=== PATIENT | female | born 1940 | race Caucasian/White ===

== ENCOUNTER 2021-03-17 15:59 | Outpatient (REF) | payer MEDICARE, OTHER, SELFPAY ==
[2021-03-17 17:14] LABS: Glucose Random 353 mg/dL (60-115)
[2021-03-17 17:21] LABS: Syphilis Screen Nonreactive (Nonreactive)
[2021-03-17 17:32] LABS: Vitamin B12 639 pg/mL (200-900)
[2021-03-18 10:11] LABS: Folate 11.3 ng/mL (> or = 4.0)
[2021-03-18 13:46] LABS: Anti Nuclear Antibody Screen NEGATIVE (NEGATIVE)
[2021-03-18 21:51] LABS: Prot Elec - Alpha1 0.2 g/dL (0.2-0.3); Prot Elec - Alpha2 0.7 g/dL (0.5-0.9); Prot Elec - Beta 1 0.4 g/dL (0.4-0.6); Prot Elec - Beta 2 0.3 g/dL (0.2-0.5); Prot Elec - Gamma 0.6 g/dL (0.8-1.7); Prot Elec - Total Protein 6.2 g/dL (6.1-8.1)
== END 2021-03-17 16:00 | disposition home or self-care (01) ==
LOC: HO.LAB 15:59
PROVIDERS: PCP Nurse Practitioner Family; Visit Provider Psychiatry & Neurology Neurology
DX: R20.0 Anesthesia of skin (principal); G62.9 Polyneuropathy, unspecified; R41.3 Other amnesia
CPT/HCPCS: 36415; 82607; 82746; 82947; 84155; 84165; 86038; 86039; 86780

== ENCOUNTER 2021-03-29 10:02 | Outpatient (REF) | payer MEDICARE, OTHER, SELFPAY ==
--- NOTE | ~2021-03-29 | MR_ITS ---
EXAMINATION: MR BRAIN WITHOUT CONTRAST CLINICAL INFORMATION: Memory loss. Ataxia. History of CVA. Rule out NPH. COMPARISON: None available. TECHNIQUE: Multiplanar, multisequence imaging of the brain was performed without intravenous contrast. FINDINGS: There is no acute infarction, hemorrhage, mass, or extra-axial fluid collection. The sequela of old infarct/hemorrhage is seen within the right basal ganglia with small amount of hemosiderin in addition to gliosis with some associated vacuo dilatation of the right frontal horn. Mild to moderate scattered foci of T2/FLAIR hyperintensity are seen within the cerebral white matter likely on the basis of chronic microangiopathy. 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 The ventricles and sulci appear commensurate. The callosal angle does not appear abnormal. The major arterial flow voids appear preserved at the skull base. The orbital contents appear normal with lens replacements noted. There is mild paranasal sinus mucosal thickening without fluid levels. MR/MR head/brain wo con IMPRESSION: No acute infarct, mass lesion, or evidence of hydrocephalus. No findings identified suspicious for normal pressure hydrocephalus. Sequela of chronic infarct/hemorrhage seen within the right basal ganglia with associated gliosis, ex-vacuo dilatation of the right lateral ventricle, and Wallerian degeneration along the corticospinal tract. 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 No disproportionate volume loss.
== END 2021-03-29 10:03 | disposition home or self-care (01) ==
LOC: HO.MRI 10:02
PROVIDERS: Visit Provider Psychiatry & Neurology Neurology
DX: R27.0 Ataxia, unspecified (principal); Z86.73 Personal history of transient ischemic attack (TIA), and cerebral infarction without residual deficits
CPT/HCPCS: 70551